=== PATIENT | female | born 1945 | race Caucasian/White ===

== ENCOUNTER 2017-03-24 22:24 | Observation (INO) | payer BC, MEDICARE ==
[~2017-03-24] VITALS: Ht 157.5 cm; Wt 62.1 kg
[2017-03-24 23:11] LABS: BLOOD UREA NITROGEN 17 mg/dL (7-18)
[2017-03-24] MEDS ORDERED: HYDR-3240 PO (23:15)
[2017-03-24] MEDS ORDERED: ASPI-496 PO (23:15)
[2017-03-24] MEDS ORDERED: CALC3.7S5 INH (23:15)
[2017-03-24] MEDS ORDERED: METO50TA82 PO (23:15)
[2017-03-24] MEDS ORDERED: LISI5TAB7 PO (23:15)
[2017-03-24] MEDS ORDERED: CHOL20002 PO (23:15)
[2017-03-24] MEDS ORDERED: PANT20TA3 PO (23:15)
[2017-03-24] MEDS ORDERED: NITR2.5C3 PO (23:15)
[2017-03-24] MEDS ORDERED: GABA300C10 PO (23:15)
[2017-03-24] MEDS ORDERED: SIMV40TA3 PO (23:15)
[2017-03-24] MEDS ORDERED: CLOP75TA PO (23:15)
[2017-03-24 23:27] LABS: IS PT STATUS REG ER OR PRE ER? YES
[2017-03-25] MEDS ORDERED: OMNIPAQUE 350 MG/ML, 100ML BOTTLE ONE (00:30)
[2017-03-25] MEDS ORDERED: SODIUM CHLORIDE 0.9% 1,000 ML IV ONE (01:02)
[2017-03-25] MEDS ORDERED: ONDANSETRON 2MG/ML, 2ML IVPush PRN ×2 (01:30→02:30)
[2017-03-25] MEDS ORDERED: POLYETHYLENE GLYCOL 17 GM PACKET PO PRN (02:30)
[2017-03-25] MEDS ORDERED: DOCUSATE 100 MG CAPSULE PO PRN (02:30)
[2017-03-25] MEDS ORDERED: ACETAMINOPHEN 325 MG TABLET PO PRN (02:30)
[2017-03-25] MEDS ORDERED: BISACODYL 10 MG SUPP PR PRN (02:30)
[2017-03-25] MEDS ORDERED: HYDROcodone/APAP 5/325 TABLET PO PRN (02:30)
[2017-03-25 02:33] LABS: DAU SCREEN DISCLAIMER
[2017-03-25 02:49] VITALS: BP 146/83
[2017-03-25 07:00] VITALS: BP 106/69
[2017-03-25] MEDS: LISINOPRIL 5 MG TABLET PO SCH (09:00)
[2017-03-25] MEDS: CLOPIDOGREL 75 MG TABLET PO SCH (09:00)
[2017-03-25] MEDS: NITROGLYCERIN 2.5 MG CAPSULE.ER PO SCH (09:00)
[2017-03-25] MEDS ORDERED: CALCITONIN NASAL 200 UNITS/0.09ML, 3.7ML NAS SCH (09:00)
[2017-03-25] MEDS: GABAPENTIN 300 MG CAPSULE PO SCH (09:58)
[2017-03-25] MEDS: CHOLECALCIFEROL 1,000 UNIT TABLET PO SCH (09:58)
[2017-03-25] MEDS: SODIUM CHLORIDE FLUSH 3ML SYRINGE IVF SCH ×2 (09:58→19:40)
[2017-03-25] MEDS: METOPROLOL TARTRATE 50 MG TABLET PO SCH (09:58)
[2017-03-25] MEDS: PANTOPRAZOLE 20MG TABLET PO SCH (09:59)
[2017-03-25] MEDS: ASPIRIN 81 MG TABLET EC PO SCH (09:59)
[2017-03-25] MEDS ORDERED: CALC3.7S5 NS (11:47)
[2017-03-25 14:13] VITALS: BP 119/73
[2017-03-25 20:30] VITALS: BP 127/72
[2017-03-25] MEDS ORDERED: SIMVASTATIN 40 MG TABLET PO SCH (21:00)
[2017-03-26 01:55] VITALS: BP 110/67
[2017-03-26 07:09] VITALS: BP 125/72
[2017-03-26] MEDS: SODIUM CHLORIDE FLUSH 3ML SYRINGE IVF SCH (09:00)
[2017-03-26] MEDS: GABAPENTIN 300 MG CAPSULE PO SCH (09:00)
[2017-03-26] MEDS: ASPIRIN 81 MG TABLET EC PO SCH (09:23)
[2017-03-26] MEDS: CHOLECALCIFEROL 1,000 UNIT TABLET PO SCH (09:23)
[2017-03-26] MEDS: CLOPIDOGREL 75 MG TABLET PO SCH (09:23)
[2017-03-26] MEDS: METOPROLOL TARTRATE 50 MG TABLET PO SCH (09:23)
[2017-03-26] MEDS: NITROGLYCERIN 2.5 MG CAPSULE.ER PO SCH (09:23)
[2017-03-26] MEDS: LISINOPRIL 5 MG TABLET PO SCH (09:24)
[2017-03-26] MEDS: PANTOPRAZOLE 20MG TABLET PO SCH (09:26)
== END 2017-03-26 14:00 | disposition home or self-care (01) ==
LOC: ED 23:59 → INTOOBSV 03-25 01:02 → 4EST 03-25 01:02 → SUATTDRO 03-25 01:49
DX: I69.320 Aphasia following cerebral infarction (principal); I69.351 Hemiplegia and hemiparesis following cerebral infarction affecting right dominant side; I11.9 Hypertensive heart disease without heart failure; I25.10 Atherosclerotic heart disease of native coronary artery without angina pectoris; E78.5 Hyperlipidemia, unspecified; E78.00 Pure hypercholesterolemia, unspecified; I25.2 Old myocardial infarction; I67.5 Moyamoya disease; K21.9 Gastro-esophageal reflux disease without esophagitis; Z87.891 Personal history of nicotine dependence; Z90.710 Acquired absence of both cervix and uterus; Z86.73 Personal history of transient ischemic attack (TIA), and cerebral infarction without residual deficits
CPT/HCPCS: 36415; 70450; 70496; 70498; 70551; 71010; 80048; 80307; 81001; 82040; 84484; 85025; 85610; 85730; 92610; 93005; 97162; 97165; 99285; G0378; Q9967